=== PATIENT | female | born 1965 | race Caucasian/White ===

== ENCOUNTER 2022-03-13 10:41 | Emergency (ER) | payer MEDICAID ==
[~2022-03-13] VITALS: Ht 172.7 cm; Wt 65.0 kg
[2022-03-13] MEDS ORDERED: LORazepam 2 mg/ml vial IM ONE (11:25)
[2022-03-13] MEDS ORDERED: TRAM50TA2 PO (12:45)
[2022-03-13 12:55] VITALS: BP 119/78
== END 2022-03-13 12:56 | disposition home or self-care (01) ==
LOC: ER 10:42
DX: M54.59 Other low back pain (principal); F41.9 Anxiety disorder, unspecified; G89.29 Other chronic pain; Z88.1 Allergy status to other antibiotic agents; Y04.8XXA Assault by other bodily force, initial encounter; Y93.89 Activity, other specified; Y92.89 Other specified places as the place of occurrence of the external cause; Y99.8 Other external cause status
CPT/HCPCS: 96372; 99283; J2060

== ENCOUNTER 2022-04-23 10:54 | Emergency (ER) | payer MEDICAID ==
[~2022-04-23] VITALS: Ht 175.3 cm; Wt 140.0 kg
[2022-04-23 11:00] VITALS: BP 125/87
== END 2022-04-23 12:54 | disposition home or self-care (01) ==
LOC: ER 10:55
DX: M25.532 Pain in left wrist (principal); M25.531 Pain in right wrist; G89.29 Other chronic pain; F41.9 Anxiety disorder, unspecified; Z88.1 Allergy status to other antibiotic agents; Z60.2 Problems related to living alone; Z79.899 Other long term (current) drug therapy; W18.39XA Other fall on same level, initial encounter; Y93.89 Activity, other specified; Y92.89 Other specified places as the place of occurrence of the external cause; Y99.8 Other external cause status
CPT/HCPCS: 29125; 73110; 99284; A6449

== ENCOUNTER 2022-05-05 11:24 | Emergency (ER) | payer MEDICAID ==
[~2022-05-05] VITALS: Ht 175.3 cm; Wt 63.6 kg
[2022-05-05 11:25] VITALS: BP 118/86
== END 2022-05-05 13:00 | disposition home or self-care (01) ==
LOC: ER 11:25
DX: M25.532 Pain in left wrist (principal); G89.29 Other chronic pain; F41.9 Anxiety disorder, unspecified; Z60.2 Problems related to living alone; Z88.1 Allergy status to other antibiotic agents; W18.39XA Other fall on same level, initial encounter; Y93.89 Activity, other specified; Y92.89 Other specified places as the place of occurrence of the external cause; Y99.8 Other external cause status
CPT/HCPCS: 29125; 99283

== ENCOUNTER 2022-09-04 09:16 | Emergency (ER) | payer MEDICAID ==
[~2022-09-04] VITALS: Ht 175.3 cm; Wt 75.0 kg
[2022-09-04 09:34] VITALS: BP 164/127
== END 2022-09-04 13:36 | disposition left against medical advice (07) ==
LOC: ER 09:16
DX: M54.9 Dorsalgia, unspecified (principal); Z53.21 Procedure and treatment not carried out due to patient leaving prior to being seen by health care provider
CPT/HCPCS: 72128; 72131; 99281